=== PATIENT | female | born 1965 | race African-American/Black ===

== ENCOUNTER 2023-02-19 08:41 | Emergency (ER) | payer OTHER ==
[2023-02-19 09:05] VITALS: BP 176/83; PULSE 73; RESP 16; TEMP 98.4; BMI 69.7
[2023-02-19] MEDS ORDERED: FAMOTIDINE 20 MG/50 ML IVPB 20 MG/50 ML MG IVPB ONE (09:28)
[2023-02-19] MEDS ORDERED: ACETAMINOPHEN 1000 MG/100 ML BAG IVPB ONE (09:28)
[2023-02-19] MEDS ORDERED: ONDANSETRON 4 MG/2 ML VIAL IVPUSH ONE (09:28)
[2023-02-19] MEDS ORDERED: ONDANSETRON 4 MG/2 ML VIAL ONE (10:54)
[2023-02-19] MEDS ORDERED: ACETAMINOPHEN INJECTION 100 ML IVPB ONE (10:54)
[2023-02-19] MEDS ORDERED: FAMOTIDINE 10 MG/ML VIAL IVPB ONE (10:54)
[2023-02-19 10:59] LABS: HEMATOCRIT 37.5 % (32.4-45.2); HEMOGLOBIN 12.2 GM/dL (10.7-15.3); MCH 26.7 pg (25.7-33.7); MCHC 32.5 g/dl (32.0-36.0); MEAN PLT VOLUME 9.5 fl (7.5-11.1); PLATELET COUNT 194 10^3/uL (134-434); RBC 4.57 M/mm3 (3.60-5.2); RDW 14.7 % (11.6-15.6)
[2023-02-19] MEDS ORDERED: KETOROLAC TROMETHAMINE 15 MG/ML VIAL IVPUSH ONE (11:21)
[2023-02-19 11:37] LABS: POTASSIUM 4.7 mmol/L (3.5-5.1)
[2023-02-19 11:39] LABS: CALCIUM 9.3 mg/dL (8.5-10.1)
[2023-02-19 11:40] LABS: ALBUMIN 3.4 g/dl (3.4-5.0); BLOOD UREA NITROGEN 12.6 mg/dL (7-18); MAGNESIUM 2.3 mg/dL (1.8-2.4)
[2023-02-19 11:42] LABS: CREATININE 0.9 mg/dL (0.55-1.3)
[2023-02-19 11:45] LABS: BILIRUBIN,TOTAL 0.3 mg/dL (0.2-1); TOT PROT 8.7 g/dl (6.4-8.2)
[2023-02-19] MEDS ORDERED: KETOROLAC TROMETHAMINE 15 MG/ML VIAL ONE (11:49)
[2023-02-19 12:31] LABS: ANISOCYTOSIS 0; HELMET CELLS 0; HOWELL-JOLLY BODIES 0; MACROCYTOSIS 0; OVALOCYTE 0; ROULEAU 0; SICKELED CELLS 0; TARGET CELLS 0; TEAR DROP CELLS 0; TOXIC GRANULATION 0
[2023-02-19 15:20] LABS: EPI CELLS 4 /uL (0-25.1); HYALINE CASTS 0 /uL (0-3.1); PH,URINE 5.5 (5.0-8.0); URINE APPEARANCE CLEAR; URINE BACTERIA 1 /uL (0-1359); URINE BILIRUBIN NEGATIVE (NEGATIVE); URINE COLOR YELLOW; URINE GLUCOSE (UA) NEGATIVE (NEGATIVE); URINE KETONE TRACE (NEGATIVE); URINE LEUK ESTERASE NEGATIVE (NEGATIVE); URINE NITRITE NEGATIVE (NEGATIVE); URINE PROTEIN NEGATIVE (NEGATIVE); URINE RBC 14 /uL (0-23.9); URINE UROBILINOGEN 0.2 mg/dL (0.2-1.0); URINE WBC 6 /uL (0-25.8)
== END 2023-02-19 16:08 | disposition home or self-care (01) ==
LOC: JER 08:41
PROC: 3E033GC Introduction of Other Therapeutic Substance into Peripheral Vein, Percutaneous Approach (ICD-10-PCS; principal; 2023-02-19)
PROC: 3E033NZ Introduction of Analgesics, Hypnotics, Sedatives into Peripheral Vein, Percutaneous Approach (ICD-10-PCS; 2023-02-19)
PROC: 3E0333Z Introduction of Anti-inflammatory into Peripheral Vein, Percutaneous Approach (ICD-10-PCS; 2023-02-19)
PROC: 3E033GC Introduction of Other Therapeutic Substance into Peripheral Vein, Percutaneous Approach (ICD-10-PCS; 2023-02-19)
DX: R10.32 Left lower quadrant pain (principal); N20.0 Calculus of kidney; R11.2 Nausea with vomiting, unspecified; R10.84 Generalized abdominal pain
CPT/HCPCS: 36415; 74177-TC; 80053; 81003; 82150; 83605; 83690; 83735; 85025; 87086; 96365; 96375; 99285-25; Q9967

== ENCOUNTER 2024-02-24 10:04 | Emergency (ER) | payer OTHER ==
[2024-02-24 10:19] VITALS: RESP 16; TEMP 97.5; BMI 34.4
[2024-02-24] MEDS ORDERED: ACETAMINOPHEN 500 MG TABLET (FP) ONE (13:38)
[2024-02-24] MEDS: ACETAMINOPHEN 500 MG TABLET (FP) PO ONE (13:39)
[2024-02-24 13:47] VITALS: BP 167/75; PULSE 61
== END 2024-02-24 13:47 | disposition home or self-care (01) ==
LOC: JERFT 10:04 → JER 10:04 → JERFT 13:47
DX: M79.662 Pain in left lower leg (principal); R22.42 Localized swelling, mass and lump, left lower limb
CPT/HCPCS: 76882-TC-RT-FY; 99284-25